=== PATIENT | female | born 1975 | race Caucasian/White ===

== ENCOUNTER → 2017-08-09 | Outpatient (CLI) | payer MEDICARE ==
[2017-08-09 11:47] LABS: BASO # 0.1 x10^3/uL (0.0-0.2); BASO % 0 % (0-3); EOS # 0.1 x10^3/uL (0.0-0.7); EOS % 0 % (0-3); HEMATOCRIT 47.9 % (36.0-47.0); HEMOGLOBIN 15.8 g/dL (12.0-15.5); LYMPH # 1.9 x10^3/uL (1.0-4.8); LYMPH % 9 % (24-48); MEAN CORPUSCULAR HEMOGLOBIN 30 pg (25-35); MEAN CORPUSCULAR HGB CONC 33 g/dL (31-37); MEAN CORPUSCULAR VOLUME 90 fL (79-100); MONO # 1.2 x10^3/uL (0.0-1.1); MONO % 5 % (0-9); NEUT # 18.9 x10^3uL (1.8-7.7); NEUT % 85 % (31-73); PLATELET COUNT 355 x10^3/uL (140-400); RED BLOOD COUNT 5.29 x10^6/uL (3.50-5.40); WHITE BLOOD COUNT 22.1 x10^3/uL (4.0-11.0)
[2017-08-09 11:48] LABS: ADD MAN DIFF? YES
[2017-08-09 12:04] LABS: INR 1.1 (0.8-1.1); PROTHROMBIN TIME PATIENT 13.1 SEC (11.7-14.0)
[2017-08-09 12:06] LABS: ANION GAP 11 (6-14); BLOOD UREA NITROGEN 21 mg/dL (7-20); BUN/CREATININE RATIO 14 (6-20); CALCIUM 9.4 mg/dL (8.5-10.1); CARBON DIOXIDE 23 mmol/L (21-32); CHLORIDE 100 mmol/L (98-107); CREATININE 1.5 mg/dL (0.6-1.0); GFR 37.7; GLUCOSE 104 mg/dL (70-99); POTASSIUM 4.7 mmol/L (3.5-5.1); SODIUM 134 mmol/L (136-145)
[2017-08-09 12:13] LABS: ALK PHOS 126 U/L (46-116); ALT (SGPT) 22 U/L (14-59); AST (SGOT) 16 U/L (15-37); TOTAL BILIRUBIN 0.4 mg/dL (0.2-1.0); TOTAL PROTEIN 7.9 g/dL (6.4-8.2)
[2017-08-09 12:21] LABS: FREE T4 1.13 ng/dL (0.76-1.46)
[2017-08-09 12:21] LABS: THYROID STIM HORMONE (TSH) 2.685 uIU/mL (0.358-3.74)
[2017-08-09 13:28] LABS: % BANDS 1 % (0-9); % LYMPHS 15 % (24-48); % MONOS 2 % (0-10); % SEGS 82 % (35-66)
[2017-08-09 13:29] LABS: PLT ESTIMATE ADEQUATE (ADEQUATE)
== END | disposition home or self-care (01) ==
LOC: LAB 11:21
DX: K62.5 Hemorrhage of anus and rectum (principal); E03.9 Hypothyroidism, unspecified; R00.0 Tachycardia, unspecified
CPT/HCPCS: 36415; 80053; 84439; 84443; 85007; 85025; 85610

== ENCOUNTER → 2017-08-11 | Outpatient (CLI) | payer MEDICARE | END | disposition home or self-care (01) | LOC: CT 12:04 | DX: K62.5 Hemorrhage of anus and rectum (principal); R91.1 Solitary pulmonary nodule | CPT/HCPCS: 74176 ==